=== PATIENT | male | born 1930 | race African-American/Black ===

== ENCOUNTER → 2016-12-24 | Outpatient (CLI) | payer MEDICARE, OTHER ==
[2014-07-25 14:36] VITALS: BP 147/81
[~2016-12-24] MED LIST: CHOL20003 PO; CONTRAST GIVEN MC PRN; Cholestyramine/Aspartame PO; FAMO-63 PO; FLUO10CA13 PO; Guaifenesin/Dextromethorphan PO; HEPARIN PF 500 UNIT/5 ML DISP.SYRIN. IV ONE; HYDR15SO PO; IOHEXOL 300 MG/ML 75 ML VIAL IV ONE; LEVO750T31 PO; Loperamide Hcl PO; PRAV40TA2 PO; PROC5TAB14 PO
--- NOTE | 2016-12-24 14:19 | RAD ---
Indication restage lung malignancy. Axial images through the chest were obtained. Approximately 75 cc of Omnipaque 300 was administered intravenously. Comparison is made to an examination one year ago. There are several small low-density masses in the liver with a more dominant mass in the left lobe. These are compatible with cysts and appear unchanged relative to the previous exam. A definite significant finding in the upper abdomen is not seen. There is moderately heavy coronary artery calcification. The ascending thoracic aorta is at the upper limits of normal in size, 4 cm. Significant hilar or mediastinal adenopathy is not seen. There are post therapeutic changes in the right upper lung. The volume loss in the right upper lung and associated triangular opacity is larger than on the previous exam. The parenchymal opacity now measures approximately 5.7 x 4.5 cm. Corresponding measurements previously were approximately 4.9 x 2.5. Within the center of this process is low-density mass larger than on the previous exam now measuring approximately 4 cm whereas previously it measured 1.3. Again the findings likely reflect post therapeutic changes. Recurrent malignancy in the right upper lobe is felt less likely but cannot be entirely excluded. If clinically warranted additional evaluation could be obtained with with PET/CT imaging. There is some pleural-parenchymal scarring in the right lower lobe appearing similar. There is a linear and somewhat oval parenchymal opacity in the right lower lung. This probably reflects ongoing scar but it too is slightly more conspicuous than on the previous exam. Malignancy is felt less likely but again cannot be entirely excluded. Again PET/CT scanning would be useful for additional evaluation. The left lung is clear. IMPRESSION: Probable ongoing scarring in the right upper and lower lung huang. Recurrent disease however is not entirely excluded. PET/CT imaging should be considered for additional evaluation PQRS Compliance Statement: One or more of the following individualized dose reduction techniques were utilized for this examination: 1. Automated exposure control 2. Adjustment of the mA and/or kV according to patient size 3. Use of iterative reconstruction technique
== END | disposition home or self-care (01) ==
LOC: CT 08:00
PROVIDERS: ATTEND Internal Medicine Hematology & Oncology
DX: C34.11 Malignant neoplasm of upper lobe, right bronchus or lung (principal)
CPT/HCPCS: 71260; Q9967

== ENCOUNTER → 2016-12-31 | Outpatient (CLI) | payer MEDICARE ==
[2014-07-25 14:36] VITALS: BP 147/81
[~2016-12-31] MED LIST changes: -CONTRAST GIVEN MC PRN; -HEPARIN PF 500 UNIT/5 ML DISP.SYRIN. IV ONE; -IOHEXOL 300 MG/ML 75 ML VIAL IV ONE
--- NOTE | 2016-12-31 14:41 | RAD ---
Indication history of lung and colon malignancy. Clinical recent CT imaging of the chest. PET/CT was performed. Images were obtained from the skull through the proximal thigh. CT was performed primarily for localization and attenuation purposes as opposed to primary diagnostic purposes. The blood sugar during the examination was 98. 14.5 mCi of FDG was administered. Note is made of a previous PET/CT examination August 09, 2014. Note is additionally made of a CT examination 12/24/2016 and the accompanying report. On CT the visualized brain appears unremarkable. No significant finding is seen in the neck. Known findings in the right upper lobe, referenced on the CT examination of the chest one week ago, are reproduced. A new finding in the chest is not seen. Low-density mass in the left lobe of the liver compatible with a cyst is seen. No definite significant finding in the abdomen or pelvis is seen. A sclerotic focus is noted associated with the right iliac bone. (This is not FDG avid) On PET the FDG is physiologically distributed in the visualized brain. No abnormal activity is seen in the neck. In the right upper lobe, ventrally and immediately adjacent to the mediastinum is a hypermetabolic focus with a maximum SUV of approximately 12.7 compatible with recurrent or residual disease. This is immediately adjacent to a low-density 4.3 cm mass likely reflecting a focus of necrosis. Irregular nodular opacity referenced on the CT examination is moderately FDG avid. Maximum SUV is 3.4. A focus of metastatic disease is suspect although it is conceivable that this is inflammatory in nature. There is a minimally avid FDG lymph node in the left hilum. Maximum SUV 2.6. No additional finding is seen in the chest. The abdomen is unremarkable. A focus of increased metabolic activity in the left lobe of the prostate persists and is similar to slightly larger. Maximum SUV associated with this prostatic focus is 12 where as previously maximum SUV was 7.8. 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 Parenchymal nodular focus of FDG activity in the right lower lobe may represent inflammation, scar or neoplastic disease. Nodular focus of increased FDG activity in the left prostate, more conspicuous than on the previous exam, suspect for primary malignancy Minimally FDG avid left hilar lymph node, indeterminate
== END | disposition home or self-care (01) ==
LOC: PETSC 11:20
PROVIDERS: ATTEND Internal Medicine Hematology & Oncology
DX: C34.11 Malignant neoplasm of upper lobe, right bronchus or lung (principal); R91.1 Solitary pulmonary nodule
CPT/HCPCS: 78815; A9552

== ENCOUNTER 2017-02-11 14:53 | Emergency (ER) | payer MEDICARE ==
[~2017-02-11] VITALS: Ht 180.3 cm; Wt 81.6 kg
[~2017-02-11 14:53] MED LIST changes: -CHOL20003 PO; +CHOL20009 PO
--- NOTE | 2017-02-11 15:31 | PHYS DOC ---
Past Medical History Past Medical History: Cancer, Diabetes-Type II, GERD, High Cholesterol, Other Additional Past Medical Histor: Colon CA(Part of intestines removed) Lung cancer 2011 in remission Past Surgical History: Appendectomy, Tonsillectomy, Other Additional Past Surgical Histo: Vasectomy,hemorrhoids,"all but 4in of colon removed." right alisha cath Alcohol Use: None Drug Use: None Adult General Chief Complaint Chief Complaint: OTHER COMPLAINTS HPI HPI Patient is a 86 year old male who presents with right-sided chest discomfort. Patient believes it's his Port-A-Cath is causing this. It was accessed on 08 February and flushed he's had this since 1982. He states 2 days ago which was 1 day after his flushed she started feeling a heavy sensation over his right hemithorax when he pushes around the port area. He states he pushes on it because sometimes it itches there and this is when he feels the discomfort.. He denies any shortness of breath with it. Currently he states it doesn't hurt. He states he saw his oncologist who told was not his port is causing his discomfort. Review of Systems Review of Systems Constitutional: Denies fever or chills [] Eyes: Denies change in visual acuity, redness, or eye pain [] HENT: Denies nasal congestion or sore throat [] Respiratory: Denies cough or shortness of breath [] Cardiovascular: No additional information not addressed in HPI [] GI: Denies abdominal pain, nausea, vomiting, bloody stools or diarrhea [] : Denies dysuria or hematuria [] Musculoskeletal: Denies back pain or joint pain [] Integument: Denies rash or skin lesions [] Neurologic: Denies headache, focal weakness or sensory changes [] Endocrine: Denies polyuria or polydipsia [] Current Medications Current Medications Current Medications Medications (Trade) Dose Ordered Sig/Akshat Start Time Stop Time Status Last Admin Dose Admin Heparin Sodium (Porcine) (Hep Lock Adult) 500 unit 1X ONCE 02/11/17 20:45 02/11/17 20:46 Info (Do NOT chart on this entry -- for MONITORING) 1 each PRN DAILY PRN 02/11/17 17:45 02/13/17 17:44 Iohexol (Omnipaque 300 Mg/ml) 75 ml 1X ONCE 02/11/17 17:45 02/11/17 17:46 DC 02/11/17 18:01 75 ML Sodium Chloride 1,000 ml @ 1,000 mls/hr 1X ONCE 02/11/17 18:00 02/11/17 18:59 DC 02/11/17 18:00 1,000 MLS/HR Allergies Allergies Allergies Coded Allergies Type Severity Reaction Last Updated Verified No Known Drug Allergies 07/31/13 No Physical Exam Physical Exam Constitutional: Well developed, well nourished, no acute distress, non-toxic appearance. [] HENT: Normocephalic, atraumatic, bilateral external ears normal, oropharynx moist, no oral exudates, nose normal. [] Eyes: PERRLA, EOMI, conjunctiva normal, no discharge. [] Neck: Normal range of motion, no tenderness, supple, no stridor. [] Cardiovascular:Heart rate regular rhythm, no murmur [] Lungs & Thorax: Bilateral breath sounds clear to auscultation, Port-A-Cath in right hemithorax, no tenderness or erythema around Port-A-Cath. Abdomen: Bowel sounds normal, soft, no tenderness, no masses, no pulsatile masses. [] Skin: Warm, dry, no erythema, no rash. [] Back: No tenderness, no CVA tenderness. [] Extremities: No tenderness, no cyanosis, no clubbing, ROM intact, no edema. [] Neurologic: Alert and oriented X 3, normal motor function, normal sensory function, no focal deficits noted. [] Psychologic: Affect normal, judgement normal, mood normal. [] Current Patient Data Vital Signs Vital Signs Date Time Temp Pulse Resp B/P (MAP) Pulse Ox O2 Delivery O2 Flow Rate FiO2 02/11/17 17:23 73 20 135/66 (89) 97 02/11/17 15:00 98.2 Room Air 98.2 Lab Values Laboratory Tests Test 02/11/17 15:40 02/11/17 16:20 02/11/17 19:30 White Blood Count 3.1 x10^3/uL (4.0-11.0) L Red Blood Count 3.83 x10^6/uL (4.30-5.70) L Hemoglobin 11.4 g/dL (13.0-17.5) L Hematocrit 34.9 % (39.0-53.0) L Mean Corpuscular Volume 91 fL (79-100) Mean Corpuscular Hemoglobin 30 pg (25-35) Mean Corpuscular Hemoglobin Concent 33 g/dL (31-37) Red Cell Distribution Width 16.7 % (11.5-14.5) H Platelet Count 158 x10^3/uL (140-400) Neutrophils (%) (Auto) 55 % (31-73) Lymphocytes (%) (Auto) 28 % (24-48) Monocytes (%) (Auto) 12 % (0-9) H Eosinophils (%) (Auto) 4 % (0-3) H Basophils (%) (Auto) 1 % (0-3) Neutrophils # (Auto) 1.7 x10^3uL (1.8-7.7) L Lymphocytes # (Auto) 0.9 x10^3/uL (1.0-4.8) L Monocytes # (Auto) 0.4 x10^3/uL (0.0-1.1) Eosinophils # (Auto) 0.1 x10^3/uL (0.0-0.7) Basophils # (Auto) 0.0 x10^3/uL (0.0-0.2) Sodium Level 147 mmol/L (136-145) H Potassium Level 4.0 mmol/L (3.5-5.1) Chloride Level 109 mmol/L (98-107) H Carbon Dioxide Level 31 mmol/L (21-32) Anion Gap 7 (6-14) Blood Urea Nitrogen 27 mg/dL (8-26) H Creatinine 1.2 mg/dL (0.7-1.3) Estimated GFR (Cockcroft-Gault) 69.1 Glucose Level 88 mg/dL (70-99) Calcium Level 8.4 mg/dL (8.5-10.1) L Magnesium Level 2.1 mg/dL (1.8-2.4) Total Bilirubin 0.6 mg/dL (0.2-1.0) Direct Bilirubin 0.2 mg/dL (0.0-0.2) Aspartate Amino Transferase (AST) 11 U/L (15-37) L Alanine Aminotransferase (ALT) 12 U/L (16-63) L Alkaline Phosphatase 62 U/L (46-116) Creatine Kinase 60 U/L (39-308) 61 U/L (39-308) Creatine Kinase MB (Mass) < 0.5 ng/mL (0.0-3.6) < 0.5 ng/mL (0.0-3.6) Creatine Kinase MB Relative Index % (0-4) % (0-4) Troponin I Quantitative < 0.017 ng/mL (0.000-0.055) < 0.017 ng/mL (0.000-0.055) SZ-Reg-T-Type Natriuretic Peptide 98 pg/mL (0-449) Total Protein 6.6 g/dL (6.4-8.2) Albumin 3.7 g/dL (3.4-5.0) Lipase 108 U/L (73-393) Urine Collection Type Void Urine Color Yellow Urine Clarity Clear Urine pH 6.0 Urine Specific Tad >=1.030 Urine Protein Negative mg/dL (NEG-TRACE) Urine Glucose (UA) Negative mg/dL (NEG) Urine Ketones (Stick) Negative mg/dL (NEG) Urine Blood Negative (NEG) Urine Nitrite Negative (NEG) Urine Bilirubin Negative (NEG) Urine Urobilinogen Dipstick 0.2 mg/dL (0.2 mg/dL) Urine Leukocyte Esterase Negative (NEG) Urine RBC 0 /HPF (0-2) Urine WBC 1-4 /HPF (0-4) Urine Squamous Epithelial Cells Few /LPF Urine Bacteria Few /HPF (0-FEW) Urine Mucus Marked /LPF Laboratory Tests 02/11/17 15:40 Laboratory Tests 02/11/17 15:40 EKG EKG EKG shows sinus rhythm [address] elevations, T-wave inversions noted in aVL, left axis deviation noted, QRS 114 ms, QTC 426 ms, as interpreted by me. EKG similar to one performed on number 2013 Radiology/Procedures Radiology/Procedures [facility] [address] [place] [address] IMAGING REPORT Signed PATIENT: ROSMERY DELUCA ACCOUNT: [id number] : 1930 LOCATION: ER AGE: 86 SEX: M EXAM STATUS: REG ER ORD. PHYSICIAN: LEANDRO HAMILTON MD REASON: Chest pain PROCEDURE: CHEST PA & LATERAL EXAM: Chest 2 views. HISTORY: Chest pain. COMPARISON: 07/23/2014. FINDINGS: Frontal and lateral views of the chest are obtained. A right-sided port catheter has its tip in the superior cavoatrial junction. An opacity in the right upper lobe appears chronic. Refer to prior CT. Tenting of the right hemidiaphragm is likely scarring and volume loss in the setting. A small right pleural effusion cannot be excluded. There is no pneumothorax. The heart is not enlarged. IMPRESSION: 1. Stable right upper lobe masslike opacity. Small right pleural effusion. 2. Hyperinflation is consistent with chronic obstructive pulmonary disease. DICTATED and SIGNED BY: DES MONTEZ MD DATE: 02/11/171656 CC: LEANDRO HAMILTON MD; ANSON HAYDEN MD ~ [facility] [address] [place] [address] IMAGING REPORT Signed PATIENT: ROSMERY DELUCA ACCOUNT: [id number] : 1930 LOCATION: ER AGE: 86 SEX: M EXAM STATUS: REG ER ORD. PHYSICIAN: LEANDRO HAMILTON MD REASON: right sided chest pain over portacath PROCEDURE: CT ANGIOGRAPHY CHEST CTA Chest with contrast: Clinical History: rt chest pain x 4-5 days, alisha cath, [id number] 75ml, priors sent, hx lung ca Shortness of breath. Axial helical images of the chest were obtained after the administration of 100 cc of IV Isovue-370 and timed appropriately for a pulmonary arterial study. Conventional axial reconstruction was performed in addition to coronal, sagittal and bilateral oblique MIP (maximum intensity projection). This study was ordered to detect possible pulmonary embolism. COMPARISON: May 13, 2013 There are no filling defects to suggest pulmonary embolism. The previously seen right hilar cavitary mass is no longer appreciated however the mass in the right upper lobe with volume loss and consolidation appears larger and now measures 6.2 x 4.9 cm and abuts the pleura both anteriorly and medially and laterally. There is a mass in the right middle lobe which is smaller and now measures 13 mm in diameter. There are multiple small borderline size mediastinal lymph nodes seen previously. Cysts in the liver were seen previously. The thoracic aorta appears normal. Impression: 1. No evidence of pulmonary embolism. 2. Right upper lobe mass appears larger and is likely progression of the patient's lung cancer. 3. Right middle lobe mass appears smaller. 4. Mild mediastinal lymphadenopathy appears stable. PQRS Compliance Statement: One or more of the following individualized dose reduction techniques were utilized for this examination: 1. Automated exposure control 2. Adjustment of the mA and/or kV according to patient size 3. Use of iterative reconstruction technique Electronically signed by: Estefani Burton III, MD (02/11/2017 7:01 PM) [facility] DICTATED and SIGNED BY: ESTEFANI BURTON III, MD DATE: 02/11/17 9989 CC: LEANDRO HAMILTON MD; ANSON HAYDEN MD ~ Impressions: Pain around Port-A-Cath Course & Med Decision Making Course & Med Decision Making Pertinent Labs and Imaging studies reviewed. (See chart for details) Labs shows slight dehydration, he received a liter of normal saline, CT angiogram of his chest did not show any acute abnormalities. Do not believe this is cardiac in nature as it is reproducible when he touches around his Port- A-Cath in the CT scan doesn't show any acute abnormalities. Repeat troponin also normal. He is being discharged home at this time and to follow-up with his primary care physician. Return precautions given his agreeable to plan is being discharged in stable condition at this time. Dragon Disclaimer Dragon Disclaimer This electronic medical record was generated, in whole or in part, using a voice recognition dictation system. Departure Departure Impression: Primary Impression: Chest pain of uncertain etiology Disposition: 01 HOME, SELF-CARE Condition: STABLE Referrals: ANSON HAYDEN MD (PCP) Patient Instructions: Chest Pain (Nonspecific) Additional Instructions: Your EKG, CT scan of your chest and blood work did not show any acute abnormality's. Your being discharged home. Your pain returns, he has shortness of breath, fevers or other concerns please return back to ER. You should follow- up with her primary care physician within the next few days. LEANDRO HAMILTON MD Feb 11, 2017 15:31
--- NOTE | 2017-02-11 15:41 | EKG ---
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
[2017-02-11 15:58] LABS: BASO % 1 % (0-3); EOS % 4 % (0-3); HEMATOCRIT 34.9 % (39.0-53.0); HEMOGLOBIN 11.4 g/dL (13.0-17.5); LYMPH # 0.9 x10^3/uL (1.0-4.8); LYMPH % 28 % (24-48); MEAN CORPUSCULAR HEMOGLOBIN 30 pg (25-35); MEAN CORPUSCULAR HGB CONC 33 g/dL (31-37); MEAN CORPUSCULAR VOLUME 91 fL (79-100); MONO % 12 % (0-9); NEUT % 55 % (31-73); PLATELET COUNT 158 x10^3/uL (140-400); RED BLOOD COUNT 3.83 x10^6/uL (4.30-5.70); RED CELL DISTRIBUTION WIDTH 16.7 % (11.5-14.5); WHITE BLOOD COUNT 3.1 x10^3/uL (4.0-11.0)
[2017-02-11 16:09] LABS: CALCIUM 8.4 mg/dL (8.5-10.1); CREATININE 1.2 mg/dL (0.7-1.3); GFR 69.1
[2017-02-11 16:17] LABS: ALBUMIN 3.7 g/dL (3.4-5.0); DIRECT BILIRUBIN 0.2 mg/dL (0.0-0.2); MAGNESIUM 2.1 mg/dL (1.8-2.4); TOTAL BILIRUBIN 0.6 mg/dL (0.2-1.0); TOTAL PROTEIN 6.6 g/dL (6.4-8.2)
[2017-02-11 16:25] LABS: CKMB MASS < 0.5 ng/mL (0.0-3.6); CREATINE KINASE 60 U/L (39-308)
[2017-02-11 16:32] LABS: BILIRUBIN,URINE NEGATIVE (NEG); GLUCOSE,URINE NEGATIVE (NEG); NITRITE,URINE NEGATIVE (NEG); PROTEIN,URINE NEGATIVE (NEG-TRACE); UROBILINOGEN,URINE 0.2 mg/dL (0.2 mg/dL)
[2017-02-11 16:40] LABS: RBC,URINE 0 /HPF (0-2)
[2017-02-11 16:41] LABS: BACTERIA,URINE FEW /HPF (0-FEW); SQUAMOUS EPITHELIAL CELL,UR FEW /LPF
--- NOTE | 2017-02-11 17:01 | RAD ---
EXAM: Chest 2 views. HISTORY: Chest pain. COMPARISON: 07/23/2014. FINDINGS: Frontal and lateral views of the chest are obtained. A right-sided port catheter has its tip in the superior cavoatrial junction. An opacity in the right upper lobe appears chronic. Refer to prior CT. Tenting of the right hemidiaphragm is likely scarring and volume loss in the setting. A small right pleural effusion cannot be excluded. There is no pneumothorax. The heart is not enlarged. IMPRESSION: 1. Stable right upper lobe masslike opacity. Small right pleural effusion. 2. Hyperinflation is consistent with chronic obstructive pulmonary disease.
[2017-02-11] MEDS ORDERED: CONTRAST GIVEN MC PRN (17:45)
[2017-02-11] MEDS ORDERED: IOHEXOL 300 MG/ML 75 ML VIAL IV ONE (17:45)
[2017-02-11] MEDS ORDERED: IV NORMAL SALINE 1000ML BAG 1,000 ML IV ONE (18:00)
--- NOTE | 2017-02-11 19:04 | RAD ---
CTA Chest with contrast: Clinical History: rt chest pain x 4-5 days, alisha cath, [id number] 75ml, priors sent, hx lung ca Shortness of breath. Axial helical images of the chest were obtained after the administration of 100 cc of IV Isovue-370 and timed appropriately for a pulmonary arterial study. Conventional axial reconstruction was performed in addition to coronal, sagittal and bilateral oblique MIP (maximum intensity projection). This study was ordered to detect possible pulmonary embolism. COMPARISON: May 13, 2013 There are no filling defects to suggest pulmonary embolism. The previously seen right hilar cavitary mass is no longer appreciated however the mass in the right upper lobe with volume loss and consolidation appears larger and now measures 6.2 x 4.9 cm and abuts the pleura both anteriorly and medially and laterally. There is a mass in the right middle lobe which is smaller and now measures 13 mm in diameter. There are multiple small borderline size mediastinal lymph nodes seen previously. Cysts in the liver were seen previously. The thoracic aorta appears normal. Impression: 1. No evidence of pulmonary embolism. 2. Right upper lobe mass appears larger and is likely progression of the patient's lung cancer. 3. Right middle lobe mass appears smaller. 4. Mild mediastinal lymphadenopathy appears stable. PQRS Compliance Statement: One or more of the following individualized dose reduction techniques were utilized for this examination: 1. Automated exposure control 2. Adjustment of the mA and/or kV according to patient size 3. Use of iterative reconstruction technique Electronically signed by: Chilo Romo III, MD (02/11/2017 7:01 PM) [facility]
[2017-02-11 20:00] LABS: CKMB MASS < 0.5 ng/mL (0.0-3.6); CREATINE KINASE 61 U/L (39-308)
[2017-02-11 20:16] VITALS: BP 188/84
[2017-02-11] MEDS ORDERED: HEPARIN PF 500 UNIT/5 ML DISP.SYRIN. IV ONE (20:45)
== END 2017-02-11 20:25 | disposition home or self-care (01) ==
LOC: ER 14:53
DX: R07.89 Other chest pain (principal); E86.0 Dehydration; E11.9 Type 2 diabetes mellitus without complications; K21.9 Gastro-esophageal reflux disease without esophagitis; E78.00 Pure hypercholesterolemia, unspecified; Z90.49 Acquired absence of other specified parts of digestive tract; Z98.52 Vasectomy status
CPT/HCPCS: 36415; 71020; 71275; 80048; 80076; 81001; 82553; 83690; 83735; 83880; 84484; 85027; 93005; 96361; 96374; 99285; J7030; Q9967

== ENCOUNTER 2017-03-30 14:05 | Emergency (ER) | payer MEDICARE ==
[~2017-03-30] VITALS: Ht 180.3 cm; Wt 81.6 kg
[2017-03-30] MEDS ORDERED: LIDOCAINE 1%/EPI 1:100,000 20 ML VIAL. INJ ONE (16:30)
[2017-03-30] MEDS ORDERED: SULF1TAB23 PO (16:33)
[2017-03-30] MEDS ORDERED: HYDR-971 PO (16:33)
--- NOTE | 2017-03-30 16:33 | PHYS DOC ---
Past Medical History Past Medical History: Cancer, Diabetes-Type II, GERD, High Cholesterol, Hypertension, Other Additional Past Medical Histor: Colon CA(Part of intestines removed) Lung cancer 2011 in remission Past Surgical History: Other Additional Past Surgical Histo: hemorrhoids,"all but 4in of colon removed." right alisha cath Alcohol Use: Sober Drug Use: None Adult General Chief Complaint Chief Complaint: ABSCESS HPI HPI Patient is a 86 year old male presenting to ED for evaluation of left shoulder abscess that started 2 days ago and is now spontaneously draining. He says it is painful to palpation. No fevers chills nausea vomiting or other systemic symptoms. Review of Systems Review of Systems Constitutional: Denies fever or chills [] Integument: + abscess Current Medications Current Medications Current Medications Medications (Trade) Dose Ordered Sig/Akshat Start Time Stop Time Status Last Admin Dose Admin Lidocaine/ Epinephrine (Xylocaine 1%-Epi 1:100,000) 20 ml 1X ONCE 03/30/17 16:30 03/30/17 16:31 DC 03/30/17 16:48 20 ML Allergies Allergies Allergies Coded Allergies Type Severity Reaction Last Updated Verified No Known Drug Allergies 07/31/13 No Physical Exam Physical Exam Constitutional: Well developed, well nourished, no acute distress, non-toxic appearance. [] Skin: Left scapula with approximate 4 x 5 cm abscess that is draining spontaneously and there is some surrounding erythema. Current Patient Data Vital Signs Vital Signs Date Time Temp Pulse Resp B/P (MAP) Pulse Ox O2 Delivery O2 Flow Rate FiO2 03/30/17 15:00 98.0 86 18 158/77 (104) 97 Room Air 98.0 EKG EKG [] Radiology/Procedures Radiology/Procedures Indication: abscess Procedure: The patient was positioned appropriately. Approximate 5 mL of 1% lidocaine with epinephrine injected into and around the abscess site. An incision was then made over the apex of the lesion and large amount of purulent material was expressed. The drainage cavity was irrigated and packed with sterile gauze. The patients tetanus status updated as needed. The patient tolerated the procedure well. Complications: none.[] Course & Med Decision Making Course & Med Decision Making Abscess that is slightly open went ahead and extended the incision for better drainage. We will discharged on [place] Bactrim and have follow with us or his PCP in 2 days and come back sooner with worsening pain fevers or other general concerns. Dragon Disclaimer Dragon Disclaimer This electronic medical record was generated, in whole or in part, using a voice recognition dictation system. Departure Departure Impression: Primary Impression: Abscess of scapular region Disposition: 01 HOME, SELF-CARE Condition: GOOD Referrals: ANSON HAYDEN MD (PCP) Patient Instructions: Abscess, Care After Scripts Hydrocodone/Apap 5-325 (NORCO 5-325 TABLET) 1 Each Tablet 1 TAB PO PRN Q6HRS Y for PAIN, #10 TAB 0 Refills Prov: ALISA WRAY DO 03/30/17 Sulfamethoxazole/Trimethoprim (BACTRIM 400-80 MG TABLET) 1 Each Tablet 1 TAB PO BID, #14 TAB Prov: ALISA WRAY DO 03/30/17 ALISA WRAY DO Mar 30, 2017 16:33
[2017-03-30 17:37] VITALS: BP 146/70
== END 2017-03-30 17:41 | disposition home or self-care (01) ==
LOC: ER 14:05
DX: L02.414 Cutaneous abscess of left upper limb (principal); E11.9 Type 2 diabetes mellitus without complications; I10 Essential (primary) hypertension; K21.9 Gastro-esophageal reflux disease without esophagitis; E78.00 Pure hypercholesterolemia, unspecified
CPT/HCPCS: 10060; 99283; J3490

== ENCOUNTER 2017-04-01 13:20 | Emergency (ER) | payer MEDICARE ==
[~2017-04-01] VITALS: Ht 180.3 cm; Wt 81.6 kg
[~2017-04-01 13:20] MED LIST changes: +HYDR-971 PO; +SULF1TAB23 PO
[2017-04-01 13:28] VITALS: BP 145/68
--- NOTE | 2017-04-01 14:15 | PHYS DOC ---
Past Medical History Past Medical History: Cancer, Diabetes-Type II, GERD, High Cholesterol, Hypertension, Other Additional Past Medical Histor: Colon CA(Part of intestines removed) Lung cancer 2011 in remission Past Surgical History: Other Additional Past Surgical Histo: hemorrhoids,"all but 4in of colon removed." right alisha cath Alcohol Use: Sober Drug Use: None Adult General Chief Complaint Chief Complaint: WOUND CHECK HPI HPI 86-year-old male presenting to the emergency department with a wound in his left shoulder. He was seen previously for an abscess which was drained and packing was placed. He presents today for wound evaluation. Onset 3 days. Location left shoulder. Duration. He denies any new rashes fevers at home. Review of systems is negative for fevers chills abdominal pain chest pain. All other review of systems is negative unless otherwise noted in history of present illness. ED course: 78-year-old male presenting to the emergency department for a wound recheck. On examination the wound there is no evidence of cellulitis associated. We removed the packing and changed the patient's gauze. The patient was in discharged home to follow up with PCP in the next 4-5 days. The patient was then discharged home in stable condition to follow up with their primary care physician over the next 2-3 days. They were to return if their symptoms worsened or if they were concerned for any reason. [id number] discharge instructions and return precautions were given. Patient's questions were answered to their satisfaction. Patient is comfortable plan. Review of Systems Review of Systems SEE ABOVE. Allergies Allergies Allergies Coded Allergies Type Severity Reaction Last Updated Verified No Known Drug Allergies 04/01/17 No Physical Exam Physical Exam SEE ABOVE Constitutional: Well developed, well nourished, no acute distress, non-toxic appearance. [] HENT: Normocephalic, atraumatic, bilateral external ears normal, oropharynx moist, no oral exudates, nose normal. [] Eyes: PERRLA, EOMI, conjunctiva normal, no discharge. [] Neck: Normal range of motion, no tenderness, supple, no stridor. [] Cardiovascular:Heart rate regular rhythm, no murmur [] Lungs & Thorax: Bilateral breath sounds clear to auscultation [] Abdomen: Bowel sounds normal, soft, no tenderness, no masses, no pulsatile masses. [] Skin: SEE ABOVE Back: No tenderness, no CVA tenderness. [] Extremities: No tenderness, no cyanosis, no clubbing, ROM intact, no edema. [] Neurologic: Alert and oriented X 3, normal motor function, normal sensory function, no focal deficits noted. [] Psychologic: Affect normal, judgement normal, mood normal. [] Current Patient Data Vital Signs Vital Signs Date Time Temp Pulse Resp B/P (MAP) Pulse Ox O2 Delivery O2 Flow Rate FiO2 04/01/17 13:28 97.9 52 18 97 Room Air 97.9 EKG EKG [] Radiology/Procedures Radiology/Procedures [] Course & Med Decision Making Course & Med Decision Making Pertinent Labs and Imaging studies reviewed. (See chart for details) [] Dragon Disclaimer Dragon Disclaimer This electronic medical record was generated, in whole or in part, using a voice recognition dictation system. Departure Departure Impression: Primary Impression: Visit for wound check Disposition: HOME, SELF-CARE Condition: STABLE Referrals: ANSON HAYDEN MD (PCP) Patient Instructions: Wound Check Additional Instructions: Thank you for allowing us to participate in your care today. Followup with your primary care physician in 3 days if your symptoms do not improve. Call your Primary Doctor tomorrow and inform them of your visit today. If you do not have a primary care provider you can ask for a list of our primary care providers. Return to the emergency department you have any new or concerning findings. This should be evaluated by the primary care physician and any necessary consulting services for continued management within a few days after discharge. Return to emergency room if you have any new or concerning symptoms including but not limited to fever, chills, nausea, vomiting, intractable pain, any new rashes, chest pain, shortness of air, uncontrolled bleeding, difficulty breathing, and/or vision loss. RAJWINDER FLORES MD Apr 01, 2017 14:15
== END 2017-04-01 14:30 | disposition home or self-care (01) ==
LOC: ER 13:20
DX: Z48.01 Encounter for change or removal of surgical wound dressing (principal); E11.9 Type 2 diabetes mellitus without complications; I10 Essential (primary) hypertension; K21.9 Gastro-esophageal reflux disease without esophagitis
CPT/HCPCS: 99283

== ENCOUNTER → 2017-04-05 | Outpatient (CLI) | payer MEDICARE ==
[2017-04-01 13:28] VITALS: BP 145/68
[~2017-04-05] MED LIST changes: +CONTRAST GIVEN MC PRN; +HEPARIN PF 500 UNIT/5 ML DISP.SYRIN. IV ONE; +IOHEXOL 300 MG/ML 75 ML VIAL IV ONE
--- NOTE | 2017-04-05 12:24 | RAD ---
Lung malignancy. Axial images through the chest were obtained. IV contrast, approximately 75 cc of Omnipaque 300 was administered. Comparison is made to a previous examination 02/11/2017. There are several low-density masses in the liver the largest measuring approximately 2.7 cm compatible with cysts. These findings are similar to the previous exam. An acute finding in the upper abdomen or evidence of metastatic disease is not seen. There is coronary artery calcification. The thoracic aorta appears unremarkable. No definite pathologic mediastinal or hilar adenopathy is seen. There is a small right pleural effusion representing a new finding compared to the prior study. A low-density mass in the right upper lobe appears similar to the previous exam. A mass in the right lower lobe is seen appearing similar. A new parenchymal finding in the chest is not seen. IMPRESSION: Small right pleural effusion representing a new finding relative to the previous exam. Low-density mass in the right upper lobe appears similar. Parenchymal mass in the right lower lobe is also similar. PQRS Compliance Statement: One or more of the following individualized dose reduction techniques were utilized for this examination: 1. Automated exposure control 2. Adjustment of the mA and/or kV according to patient size 3. Use of iterative reconstruction technique
== END | disposition home or self-care (01) ==
LOC: CT 11:01
PROVIDERS: ATTEND Internal Medicine Hematology & Oncology
DX: C34.11 Malignant neoplasm of upper lobe, right bronchus or lung (principal); J90 Pleural effusion, not elsewhere classified
CPT/HCPCS: 71260

== ENCOUNTER → 2017-07-30 | Outpatient (CLI) | payer MEDICARE ==
[~2017-07-30] MED LIST changes: -CHOL20009 PO; +CONTRAST GIVEN MC; -CONTRAST GIVEN MC PRN; -Cholestyramine/Aspartame PO; -FAMO-63 PO; -FLUO10CA13 PO; -Guaifenesin/Dextromethorphan PO; +HEPARIN PF 500 UNIT/5 ML DISP.SYRIN. IV; -HEPARIN PF 500 UNIT/5 ML DISP.SYRIN. IV ONE; -HYDR-971 PO; -HYDR15SO PO; +IOHEXOL 300 MG/ML 100ML VIAL. IV; -IOHEXOL 300 MG/ML 75 ML VIAL IV ONE; -LEVO750T31 PO; -Loperamide Hcl PO; -PRAV40TA2 PO; -PROC5TAB14 PO; -SULF1TAB23 PO
== END | disposition home or self-care (01) ==
LOC: CT 08:37
DX: C34.11 Malignant neoplasm of upper lobe, right bronchus or lung (principal); J47.9 Bronchiectasis, uncomplicated; J90 Pleural effusion, not elsewhere classified; J98.4 Other disorders of lung; J98.11 Atelectasis
CPT/HCPCS: 71260

== ENCOUNTER → 2018-02-04 | Outpatient (CLI) | payer MEDICARE ==
[~2018-02-04] MED LIST changes: -CONTRAST GIVEN MC; +CONTRAST GIVEN. MC
== END | disposition home or self-care (01) ==
LOC: CT 09:14
DX: C34.11 Malignant neoplasm of upper lobe, right bronchus or lung (principal); J47.9 Bronchiectasis, uncomplicated; J98.11 Atelectasis; J90 Pleural effusion, not elsewhere classified
CPT/HCPCS: 71260; Q9967

== ENCOUNTER 2018-03-08 07:44 | Emergency (ER) | payer MEDICARE ==
[~2018-03-08] VITALS: Ht 180.3 cm; Wt 77.1 kg
[~2018-03-08 07:44] MED LIST changes: +ALBU2.5V14 NEB; +ASPI325T8 PO; +CHOL20009 PO; -CONTRAST GIVEN. MC; +Cholestyramine/Aspartame PO; +FAMO-63 PO; +FLUO10CA13 PO; +Guaifenesin/Dextromethorphan PO; -HEPARIN PF 500 UNIT/5 ML DISP.SYRIN. IV; +HYDR-971 PO; +HYDR15SO PO; -IOHEXOL 300 MG/ML 100ML VIAL. IV; +LEVO750T31 PO; +Loperamide Hcl PO; +PRAV40TA2 PO; +PROC5TAB14 PO; +SULF1TAB23 PO
--- NOTE | 2018-03-08 08:16 | PHYS DOC ---
Past Medical History Past Medical History: Cancer, Diabetes-Type II, GERD, High Cholesterol, Hypertension, Other Additional Past Medical Histor: Colon CA(Part of intestines removed) Lung cancer 2011 in remission Past Surgical History: Other Additional Past Surgical Histo: hemorrhoids,"all but 4in of colon removed." right alisha cath Alcohol Use: Sober Drug Use: None Adult General Chief Complaint Chief Complaint: BLOOD IN URINE HPI HPI Patient is an 87-year-old male who presents to the emergency department for evaluation of painless hematuria. He states that after he urinated yesterday evening, at the end of urination he noticed some blood coming out of his penis. He states the same thing happened this morning. He states he has had some urinary frequency, but denies any dysuria. He is not having any pain at all. He denies any pelvic or genital/perineal pain, although he does have a history of prostatism in the past. He has not had any abdominal pain, flank or back pain, fevers, or chills. He has not had any nausea or vomiting. He does not take any anticoagulants. There are no alleviating, or exacerbating factors to his symptoms. The patient denies having any rectal bleeding or blood in his stools. Review of Systems Review of Systems Constitutional: Denies fever or chills [] Eyes: Denies change in visual acuity, redness, or eye pain [] HENT: Denies nasal congestion or sore throat [] Respiratory: Denies cough or shortness of breath [] Cardiovascular: The patient denies any shortness of breath, chest pain, palpitations, or orthopnea [] GI: Denies abdominal pain, nausea, vomiting, bloody stools or diarrhea [] : Denies dysuria. Does report hematuria [] Musculoskeletal: Denies back pain or joint pain [] Integument: Denies rash or skin lesions [] Neurologic: Denies headache, focal weakness or sensory changes [] Endocrine: Denies polyuria or polydipsia [] All other systems were reviewed and found to be within normal limits, except as documented in this note. Allergies Allergies Allergies Coded Allergies Type Severity Reaction Last Updated Verified No Known Drug Allergies 04/01/17 No Physical Exam Physical Exam PHYSICAL EXAM: CONSTITUTIONAL: Well developed, well nourished HEAD: normocephalic, atraumatic EENT: PERRL, EOMI. Conjunctivae normal color, sclerae non-icteric; moist mucous membranes. NECK: Supple, non-tender; no meningismus. LUNGS: Lungs CTA, breathing even and unlabored. Normal air movement. HEART: Regular rate and rhythm, no murmur CHEST: No deformity; non-tender ABDOMEN: The abdomen is soft, and non-tender, no masses or bruits. EXTREM: Normal ROM; no deformity, no calf tenderness. Normal pulses palpable in all extremities. There is no pedal edema. SKIN: No rash; no diaphoresis NEURO: Alert; normal speech and cognition; CN's grossly intact; strength grossly intact without focal deficit. BACK: No CVA TTP. GENITOURINARY: Normal external genitalia. The patient is noncircumcised. There is no urethral discharge or blood at the urethral meatus. Current Patient Data Vital Signs Vital Signs Date Time Temp Pulse Resp B/P (MAP) Pulse Ox O2 Delivery O2 Flow Rate FiO2 03/08/18 11:01 79 20 164/76 (105) 98 Room Air 03/08/18 08:10 98.3 98.3 Lab Values Laboratory Tests Test 03/08/18 08:50 03/08/18 10:00 03/08/18 10:15 White Blood Count 3.4 x10^3/uL (4.0-11.0) L Red Blood Count 3.87 x10^6/uL (4.30-5.70) L Hemoglobin 11.2 g/dL (13.0-17.5) L Hematocrit 34.2 % (39.0-53.0) L Mean Corpuscular Volume 89 fL (79-100) Mean Corpuscular Hemoglobin 29 pg (25-35) Mean Corpuscular Hemoglobin Concent 33 g/dL (31-37) Red Cell Distribution Width 17.0 % (11.5-14.5) H Platelet Count 149 x10^3/uL (140-400) Neutrophils (%) (Auto) 58 % (31-73) Lymphocytes (%) (Auto) 25 % (24-48) Monocytes (%) (Auto) 10 % (0-9) H Eosinophils (%) (Auto) 5 % (0-3) H Basophils (%) (Auto) 2 % (0-3) Neutrophils # (Auto) 2.0 x10^3uL (1.8-7.7) Lymphocytes # (Auto) 0.8 x10^3/uL (1.0-4.8) L Monocytes # (Auto) 0.3 x10^3/uL (0.0-1.1) Eosinophils # (Auto) 0.2 x10^3/uL (0.0-0.7) Basophils # (Auto) 0.1 x10^3/uL (0.0-0.2) Sodium Level 140 mmol/L (136-145) Potassium Level 4.3 mmol/L (3.5-5.1) Chloride Level 105 mmol/L (98-107) Carbon Dioxide Level 26 mmol/L (21-32) Anion Gap 9 (6-14) Blood Urea Nitrogen 20 mg/dL (8-26) Creatinine 1.3 mg/dL (0.7-1.3) Estimated GFR (Cockcroft-Gault) 62.9 BUN/Creatinine Ratio 15 (6-20) Glucose Level 101 mg/dL (70-99) H Calcium Level 8.8 mg/dL (8.5-10.1) Total Bilirubin 0.5 mg/dL (0.2-1.0) Aspartate Amino Transferase (AST) 13 U/L (15-37) L Alanine Aminotransferase (ALT) 12 U/L (16-63) L Alkaline Phosphatase 70 U/L (46-116) Total Protein 6.7 g/dL (6.4-8.2) Albumin 3.5 g/dL (3.4-5.0) Albumin/Globulin Ratio 1.1 (1.0-1.7) Urine Color Yellow Urine Clarity Clear Urine pH 6.5 Urine Specific [place] 1.015 Urine Protein Negative mg/dL (NEG-TRACE) Urine Glucose (UA) Negative mg/dL (NEG) Urine Ketones (Stick) Negative mg/dL (NEG) Urine Blood Negative (NEG) Urine Nitrite Negative (NEG) Urine Bilirubin Negative (NEG) Urine Urobilinogen Dipstick 0.2 mg/dL (0.2 mg/dL) Urine Leukocyte Esterase Negative (NEG) Urine RBC Occ /HPF (0-2) Urine WBC Occ /HPF (0-4) Urine Squamous Epithelial Cells Few /LPF Urine Bacteria Many /HPF (0-FEW) Urine Mucus Slight /LPF Prothrombin Time 13.9 SEC (11.7-14.0) Prothrombin Time INR 1.1 (0.8-1.1) PTT 27 SEC (24-38) Laboratory Tests 03/08/18 08:50 Laboratory Tests 03/08/18 08:50 EKG EKG [] Radiology/Procedures Radiology/Procedures [PROCEDURE: CT ABDOMEN PELVIS WO CONTRAST CT scan of the abdomen and pelvis without contrast 03/08/2018 CLINICAL HISTORY: Hematuria for one day. TECHNIQUE: Unenhanced, contiguous, 2 mm axial sections were obtained through the abdomen and pelvis. One or more of the following individualized dose reduction techniques were utilized for this study: 1. Automated exposure control. 2. Adjustment of the mA and/or kV according to patient size. 3. Use of iterative reconstruction technique. FINDINGS: Comparison study is dated 07/24/2014. Images through the lung bases demonstrate a small right pleural effusion. Minimal dependent subsegmental atelectasis is seen involving both lower lobes. A 3 cm low-attenuation lesion is involving the left lobe liver. A 1 cm low-attenuation lesion is seen within the left lobe liver posterior to this. These are consistent with hepatic cysts. They are unchanged. The spleen, pancreas and adrenal glands are within normal limits. No renal or ureteral calculus is seen. There is no evidence of obstruction of either collecting system. A 1 cm rounded low-attenuation lesion is seen involving the lower pole of the left kidney. This likely represents a cyst. It is unchanged. Atherosclerotic calcification of the abdominal aorta and its branches is seen. The abdominal aorta tapers normally. The gallbladder is slightly contracted. No free fluid or free air is seen within the abdomen. There is no evidence of bowel obstruction. Images through the pelvis demonstrate the urinary bladder distended with urine. An anastomosis is seen involving the sigmoid colon within the pelvis. No distal ureteral calculus is seen. Calcifications are seen within the pelvis consistent with phleboliths. No free fluid is seen. No adnexal mass is noted. Mild S-shaped curvature of the thoracolumbar spine is seen. Degenerative changes are seen involving the lower thoracic and throughout the lumbar spine and both hips. IMPRESSION: No acute abnormality is seen. ] Course & Med Decision Making Course & Med Decision Making Pertinent Labs and Imaging studies reviewed. (See chart for details) [11:30 AM:Patient remains stable. I discussed test results, the need for close follow-up, and return precautions.] Juan Francisco Disclaimer Dragon Disclaimer This electronic medical record was generated, in whole or in part, using a voice recognition dictation system. Departure Departure Impression: Primary Impression: Hematuria Disposition: 01 HOME, SELF-CARE Condition: STABLE Referrals: ANSON HAYDEN MD (PCP) LULU CLARKE MD Patient Instructions: Hematuria, Adult ALISA WILD MD Mar 08, 2018 08:16
[2018-03-08 08:59] LABS: BASO # 0.1 x10^3/uL (0.0-0.2); BASO % 2 % (0-3); EOS # 0.2 x10^3/uL (0.0-0.7); EOS % 5 % (0-3); HEMATOCRIT 34.2 % (39.0-53.0); HEMOGLOBIN 11.2 g/dL (13.0-17.5); LYMPH # 0.8 x10^3/uL (1.0-4.8); LYMPH % 25 % (24-48); MEAN CORPUSCULAR HEMOGLOBIN 29 pg (25-35); MEAN CORPUSCULAR HGB CONC 33 g/dL (31-37); MEAN CORPUSCULAR VOLUME 89 fL (79-100); MONO # 0.3 x10^3/uL (0.0-1.1); MONO % 10 % (0-9); NEUT % 58 % (31-73); PLATELET COUNT 149 x10^3/uL (140-400); RED BLOOD COUNT 3.87 x10^6/uL (4.30-5.70); WHITE BLOOD COUNT 3.4 x10^3/uL (4.0-11.0)
[2018-03-08 09:16] LABS: CALCIUM 8.8 mg/dL (8.5-10.1); CREATININE 1.3 mg/dL (0.7-1.3); GFR 62.9; POTASSIUM 4.3 mmol/L (3.5-5.1)
[2018-03-08 09:23] LABS: ALBUMIN 3.5 g/dL (3.4-5.0); ALBUMIN/GLOBULIN RATIO 1.1 (1.0-1.7); TOTAL BILIRUBIN 0.5 mg/dL (0.2-1.0); TOTAL PROTEIN 6.7 g/dL (6.4-8.2)
--- NOTE | 2018-03-08 10:21 | RAD ---
CT scan of the abdomen and pelvis without contrast 03/08/2018 CLINICAL HISTORY: Hematuria for one day. TECHNIQUE: Unenhanced, contiguous, 2 mm axial sections were obtained through the abdomen and pelvis. One or more of the following individualized dose reduction techniques were utilized for this study: 1. Automated exposure control. 2. Adjustment of the mA and/or kV according to patient size. 3. Use of iterative reconstruction technique. FINDINGS: Comparison study is dated 07/24/2014. Images through the lung bases demonstrate a small right pleural effusion. Minimal dependent subsegmental atelectasis is seen involving both lower lobes. A 3 cm low-attenuation lesion is involving the left lobe liver. A 1 cm low-attenuation lesion is seen within the left lobe liver posterior to this. These are consistent with hepatic cysts. They are unchanged. The spleen, pancreas and adrenal glands are within normal limits. No renal or ureteral calculus is seen. There is no evidence of obstruction of either collecting system. A 1 cm rounded low-attenuation lesion is seen involving the lower pole of the left kidney. This likely represents a cyst. It is unchanged. Atherosclerotic calcification of the abdominal aorta and its branches is seen. The abdominal aorta tapers normally. The gallbladder is slightly contracted. No free fluid or free air is seen within the abdomen. There is no evidence of bowel obstruction. Images through the pelvis demonstrate the urinary bladder distended with urine. An anastomosis is seen involving the sigmoid colon within the pelvis. No distal ureteral calculus is seen. Calcifications are seen within the pelvis consistent with phleboliths. No free fluid is seen. No adnexal mass is noted. Mild S-shaped curvature of the thoracolumbar spine is seen. Degenerative changes are seen involving the lower thoracic and throughout the lumbar spine and both hips. IMPRESSION: No acute abnormality is seen. Electronically signed by: Jason Berger MD (03/08/2018 10:17 AM) [id number]
[2018-03-08 10:39] LABS: PROTHROMBIN TIME PATIENT 13.9 SEC (11.7-14.0)
[2018-03-08 11:01] VITALS: BP 164/76
[2018-03-08 11:18] LABS: BACTERIA,URINE MANY /HPF (0-FEW); BILIRUBIN,URINE NEGATIVE (NEG); CLARITY,URINE CLEAR; COLOR,URINE YELLOW; NITRITE,URINE NEGATIVE (NEG); PH,URINE 6.5; PROTEIN,URINE NEGATIVE (NEG-TRACE); RBC,URINE OCC /HPF (0-2); SQUAMOUS EPITHELIAL CELL,UR FEW /LPF; UROBILINOGEN,URINE 0.2 mg/dL (0.2 mg/dL); WBC,URINE OCC /HPF (0-4)
== END 2018-03-08 12:00 | disposition home or self-care (01) ==
LOC: ER 07:44
DX: R31.9 Hematuria, unspecified (principal); E11.9 Type 2 diabetes mellitus without complications; K21.9 Gastro-esophageal reflux disease without esophagitis; E78.00 Pure hypercholesterolemia, unspecified; I10 Essential (primary) hypertension
CPT/HCPCS: 36415; 74176; 80053; 81001; 85025; 85610; 85730; 87086; 99285-25

== ENCOUNTER 2018-04-22 13:10 | Emergency (ER) | payer MEDICARE ==
[~2018-04-22] VITALS: Ht 180.3 cm; Wt 77.1 kg
[2018-04-22 15:28] LABS: BILIRUBIN,URINE NEGATIVE (NEG); CLARITY,URINE CLEAR; COLOR,URINE YELLOW; NITRITE,URINE NEGATIVE (NEG); PH,URINE 6.5; PROTEIN,URINE NEGATIVE (NEG-TRACE); UROBILINOGEN,URINE 0.2 mg/dL (0.2 mg/dL)
[2018-04-22 15:47] LABS: BACTERIA,URINE 0 /HPF (0-FEW); RBC,URINE 0 /HPF (0-2); WBC,URINE 0 /HPF (0-4)
--- NOTE | 2018-04-22 16:20 | PHYS DOC ---
Past Medical History Past Medical History: Cancer, Diabetes-Type II, GERD, High Cholesterol, Hypertension, Other Additional Past Medical Histor: Colon CA(Part of intestines removed) Lung cancer 2011 in remission Past Surgical History: Other Additional Past Surgical Histo: hemorrhoids,"all but 4in of colon removed." right alisha cath Alcohol Use: Sober Drug Use: None Adult General Chief Complaint Chief Complaint: URINARY RETENTION HPI HPI Patient is a 87 year old AA male with history of colon cancer presents with urinary frequency for the past one week. Patient was evaluated by his PCP and started on an unknown medication. Patient is not clear . Treatment for urinary tract infection, possibly related urinary frequency or bladder spasm. Patient did complete medication and states his symptoms have continued with frequent urination throughout the day time. Denies fever, chills , nausea, vomiting, sweats. No abdominal pain or any other acute pain complaint. [] Review of Systems Review of Systems Review symptoms as per history of present illness. All other systems were reviewed and found to be within normal limits, except as documented in this note. Allergies Allergies Allergies Coded Allergies Type Severity Reaction Last Updated Verified No Known Drug Allergies 04/01/17 No Physical Exam Physical Exam Constitutional: Well developed, well nourished, no acute distress, non-toxic appearance. [] HENT: Normocephalic, atraumatic, bilateral external ears normal, oropharynx moist, no oral exudates, nose normal. [] Eyes: PERRLA, EOMI, conjunctiva normal, no discharge. [] Neck: Normal range of motion, no tendernesr. [] Cardiovascular:Heart rate regular rhythm, no murmur [] Lungs & Thorax: Bilateral breath sounds clear to auscultation [] Abdomen: Bowel sounds normal, soft, no tenderness, no pulsatile or palpable masses. [] Skin: Warm, dry, no erythema, no rash. [] Back: No tenderness, no CVA tenderness. [] Extremities: No tenderness. [] Neurologic: Alert and oriented X 3, normal motor function, normal sensory function, no focal deficits noted. [] Psychologic: Affect normal, judgement normal, mood normal. [] Current Patient Data Vital Signs Vital Signs Date Time Temp Pulse Resp B/P (MAP) Pulse Ox O2 Delivery O2 Flow Rate FiO2 04/22/18 14:31 98.1 92 20 98 98.1 Lab Values Laboratory Tests Test 04/22/18 15:03 Urine Collection Type Unknown Urine Color Yellow Urine Clarity Clear Urine pH 6.5 Urine Specific [place] 1.015 Urine Protein Negative mg/dL (NEG-TRACE) Urine Glucose (UA) Negative mg/dL (NEG) Urine Ketones (Stick) Negative mg/dL (NEG) Urine Blood Negative (NEG) Urine Nitrite Negative (NEG) Urine Bilirubin Negative (NEG) Urine Urobilinogen Dipstick 0.2 mg/dL (0.2 mg/dL) Urine Leukocyte Esterase Negative (NEG) Urine RBC 0 /HPF (0-2) Urine WBC 0 /HPF (0-4) Urine Bacteria 0 /HPF (0-FEW) Urine Mucus Slight /LPF EKG EKG [] Radiology/Procedures Radiology/Procedures [] Course & Med Decision Making Course & Med Decision Making Pertinent Labs and Imaging studies reviewed. (See chart for details) [Patient with benign exam with good urine output. the scan performed with less than 70 mL of residual urine present bladder. UA unremarkable. Recommend following up with PCP early next week.] Dragon Disclaimer Dragon Disclaimer This electronic medical record was generated, in whole or in part, using a voice recognition dictation system. Departure Departure Impression: Primary Impression: Urinary frequency Disposition: 01 HOME, SELF-CARE Condition: GOOD Patient Instructions: Urinary Frequency Additional Instructions: Please increase daily fluid intake and follow-up with your PCP early next week for reevaluation. Return to the ED if new or worsening symptoms. SILVESTRE METCALF DO Apr 22, 2018 16:20
[2018-04-22 16:30] VITALS: BP 138/76
== END 2018-04-22 17:00 | disposition home or self-care (01) ==
LOC: ER 13:10
DX: R35.0 Frequency of micturition (principal); K21.9 Gastro-esophageal reflux disease without esophagitis; E78.00 Pure hypercholesterolemia, unspecified; E11.9 Type 2 diabetes mellitus without complications; I10 Essential (primary) hypertension; Z85.038 Personal history of other malignant neoplasm of large intestine; Z85.118 Personal history of other malignant neoplasm of bronchus and lung
CPT/HCPCS: 81001; 99283; 99285

== ENCOUNTER 2018-05-02 17:42 | Emergency (ER) | payer MEDICARE ==
[~2018-05-02] VITALS: Ht 180.3 cm; Wt 79.4 kg
--- NOTE | 2018-05-02 18:13 | PHYS DOC ---
Past Medical History Past Medical History: Cancer, Diabetes-Type II, GERD, High Cholesterol, Hypertension, Other Additional Past Medical Histor: Colon CA(Part of intestines removed) Lung cancer 2011 in remission Past Surgical History: Other Additional Past Surgical Histo: hemorrhoids,"all but 4in of colon removed." right alisha cath Alcohol Use: Sober Drug Use: None Adult General Chief Complaint Chief Complaint: URINARY RETENTION HPI HPI Patient is an 87-year-old male who presents with complaint of urinary retention. Patient states that about 3:00 this morning he noticed that he was having a difficult time urinating. He states that all he has been able to get out since that time as just a few drops. He rates pain as being moderate. He denies having had any urinary discomfort. He states that he was recently seen here for the same complaint and was told that he was not drinking enough fluids. He denies any fever or back pain. He states that he has been scheduled for a follow-up appointment with his primary care doctor for this complaint. Review of Systems Review of Systems Constitutional: Denies fever or chills [] Respiratory: Denies cough or shortness of breath [] Cardiovascular: Denies chest pain [] GI: Complains of lower abdominal/suprapubic pain/pressure[] : Denies dysuria or hematuria. Complains of urinary retention [] Musculoskeletal: Denies back pain or joint pain [] All other systems were reviewed and found to be within normal limits, except as documented in this note. Allergies Allergies Allergies Coded Allergies Type Severity Reaction Last Updated Verified No Known Drug Allergies 04/01/17 No Physical Exam Physical Exam Constitutional: Well developed, well nourished, no acute distress, non-toxic appearance. [] HENT: Normocephalic, atraumatic, bilateral external ears normal, oropharynx moist, no oral exudates, nose normal. [] Eyes: PERRLA, EOMI, conjunctiva normal, no discharge. [] Neck: Normal range of motion, no tenderness, supple, no stridor. [] Cardiovascular:Heart rate regular rhythm, no murmur [] Lungs & Thorax: Bilateral breath sounds clear to auscultation [] Abdomen: Bowel sounds normal, soft, no tenderness, no masses, no pulsatile masses. [] Skin: Warm, dry, no erythema, no rash. [] Extremities: No tenderness, no cyanosis, no clubbing, ROM intact, no edema. [] Neurologic: Alert and oriented. [] Current Patient Data Vital Signs Vital Signs Date Time Temp Pulse Resp B/P (MAP) Pulse Ox O2 Delivery O2 Flow Rate FiO2 05/02/18 17:50 97.8 109 20 175/92 (119) 97 Room Air 97.8 Lab Values Laboratory Tests Test 05/02/18 18:06 05/02/18 18:22 Urine Collection Type U cath Urine Color Straw Urine Clarity Clear Urine pH 7.0 Urine Specific [place] <=1.005 Urine Protein Negative mg/dL (NEG-TRACE) Urine Glucose (UA) Negative mg/dL (NEG) Urine Ketones (Stick) Negative mg/dL (NEG) Urine Blood Negative (NEG) Urine Nitrite Negative (NEG) Urine Bilirubin Negative (NEG) Urine Urobilinogen Dipstick 0.2 mg/dL (0.2 mg/dL) Urine Leukocyte Esterase Negative (NEG) Urine RBC Rare /HPF (0-2) Urine WBC 0 /HPF (0-4) Urine Squamous Epithelial Cells Occ /LPF Urine Bacteria 0 /HPF (0-FEW) White Blood Count 3.7 x10^3/uL (4.0-11.0) L Red Blood Count 3.95 x10^6/uL (4.30-5.70) L Hemoglobin 11.7 g/dL (13.0-17.5) L Hematocrit 34.5 % (39.0-53.0) L Mean Corpuscular Volume 87 fL (79-100) Mean Corpuscular Hemoglobin 30 pg (25-35) Mean Corpuscular Hemoglobin Concent 34 g/dL (31-37) Red Cell Distribution Width 16.2 % (11.5-14.5) H Platelet Count 164 x10^3/uL (140-400) Neutrophils (%) (Auto) 70 % (31-73) Lymphocytes (%) (Auto) 17 % (24-48) L Monocytes (%) (Auto) 8 % (0-9) Eosinophils (%) (Auto) 4 % (0-3) H Basophils (%) (Auto) 2 % (0-3) Neutrophils # (Auto) 2.6 x10^3uL (1.8-7.7) Lymphocytes # (Auto) 0.6 x10^3/uL (1.0-4.8) L Monocytes # (Auto) 0.3 x10^3/uL (0.0-1.1) Eosinophils # (Auto) 0.1 x10^3/uL (0.0-0.7) Basophils # (Auto) 0.1 x10^3/uL (0.0-0.2) Sodium Level 134 mmol/L (136-145) L Potassium Level 3.9 mmol/L (3.5-5.1) Chloride Level 99 mmol/L (98-107) Carbon Dioxide Level 26 mmol/L (21-32) Anion Gap 9 (6-14) Blood Urea Nitrogen 13 mg/dL (8-26) Creatinine 1.1 mg/dL (0.7-1.3) Estimated GFR (Cockcroft-Gault) 76.3 BUN/Creatinine Ratio 12 (6-20) Glucose Level 94 mg/dL (70-99) Calcium Level 9.5 mg/dL (8.5-10.1) Total Bilirubin 0.6 mg/dL (0.2-1.0) Aspartate Amino Transferase (AST) 13 U/L (15-37) L Alanine Aminotransferase (ALT) 12 U/L (16-63) L Alkaline Phosphatase 69 U/L (46-116) Total Protein 7.1 g/dL (6.4-8.2) Albumin 3.6 g/dL (3.4-5.0) Albumin/Globulin Ratio 1.0 (1.0-1.7) Laboratory Tests 05/02/18 18:22 Laboratory Tests 05/02/18 18:22 EKG EKG [] Radiology/Procedures Radiology/Procedures [] Course & Med Decision Making Course & Med Decision Making Pertinent Labs and Imaging studies reviewed. (See chart for details) A full catheter was placed by ER nurse and patient has had a total of 1500 mL's of urine output. Patient is asymptomatic. I discussed with patient leaving the catheter in and discharging with a leg bag versus discharging home with prescription for Flomax. Patient prefers the prescription and follow-up with his provider. Silva catheter removed by ER nurse. Dragon Disclaimer Dragon Disclaimer This electronic medical record was generated, in whole or in part, using a voice recognition dictation system. Departure Departure Impression: Primary Impression: Urinary retention Disposition: 01 HOME, SELF-CARE Condition: STABLE Referrals: ANSON HAYDEN MD (PCP) Patient Instructions: Urinary Retention, Acute, Male Scripts Tamsulosin Hcl (FLOMAX) 0.4 Mg Cap.er.24h 0.4 MG PO DAILY, #30 TAB Prov: LAURA BLAKELY Jr., DO 05/02/18 LAURA BLAKELY Jr., DO May 02, 2018 18:12
[2018-05-02 18:24] LABS: BILIRUBIN,URINE NEGATIVE (NEG); CLARITY,URINE CLEAR; NITRITE,URINE NEGATIVE (NEG); PROTEIN,URINE NEGATIVE (NEG-TRACE); UROBILINOGEN,URINE 0.2 mg/dL (0.2 mg/dL)
[2018-05-02 18:29] LABS: BASO # 0.1 x10^3/uL (0.0-0.2); BASO % 2 % (0-3); EOS # 0.1 x10^3/uL (0.0-0.7); EOS % 4 % (0-3); HEMATOCRIT 34.5 % (39.0-53.0); HEMOGLOBIN 11.7 g/dL (13.0-17.5); LYMPH # 0.6 x10^3/uL (1.0-4.8); LYMPH % 17 % (24-48); MEAN CORPUSCULAR HEMOGLOBIN 30 pg (25-35); MEAN CORPUSCULAR HGB CONC 34 g/dL (31-37); MEAN CORPUSCULAR VOLUME 87 fL (79-100); MONO # 0.3 x10^3/uL (0.0-1.1); MONO % 8 % (0-9); NEUT # 2.6 x10^3uL (1.8-7.7); NEUT % 70 % (31-73); PLATELET COUNT 164 x10^3/uL (140-400); RED BLOOD COUNT 3.95 x10^6/uL (4.30-5.70); RED CELL DISTRIBUTION WIDTH 16.2 % (11.5-14.5); WHITE BLOOD COUNT 3.7 x10^3/uL (4.0-11.0)
[2018-05-02 18:30] LABS: COLOR,URINE STRAW
[2018-05-02 18:32] LABS: BACTERIA,URINE 0 /HPF (0-FEW); RBC,URINE RARE /HPF (0-2); SQUAMOUS EPITHELIAL CELL,UR OCC /LPF; WBC,URINE 0 /HPF (0-4)
[2018-05-02 18:39] LABS: CALCIUM 9.5 mg/dL (8.5-10.1); CREATININE 1.1 mg/dL (0.7-1.3); GFR 76.3; POTASSIUM 3.9 mmol/L (3.5-5.1)
[2018-05-02 18:47] LABS: ALBUMIN 3.6 g/dL (3.4-5.0); TOTAL BILIRUBIN 0.6 mg/dL (0.2-1.0); TOTAL PROTEIN 7.1 g/dL (6.4-8.2)
[2018-05-02] MEDS ORDERED: TAMS0.4C97 PO (19:28)
[2018-05-02 19:30] VITALS: BP 165/81
== END 2018-05-02 19:35 | disposition home or self-care (01) ==
LOC: ER 17:42
DX: R33.9 Retention of urine, unspecified (principal); E11.9 Type 2 diabetes mellitus without complications; K21.9 Gastro-esophageal reflux disease without esophagitis; E78.00 Pure hypercholesterolemia, unspecified; I10 Essential (primary) hypertension; Z85.038 Personal history of other malignant neoplasm of large intestine
CPT/HCPCS: 36415; 80053; 81001; 85025; 99284

== ENCOUNTER → 2018-06-07 | Outpatient (CLI) | payer MEDICARE ==
[~2018-06-07] MED LIST changes: +0.9 % SOD CHL for STERILE FIELD 10 ML DISP.SYRIN. IV ONE; +CONTRAST GIVEN. MC PRN; +HEPARIN PF 500 UNIT/5 ML DISP.SYRIN. IV ONE; +IOHEXOL 300 MG/ML 100ML VIAL. IV ONE; +TAMS0.4C97 PO
--- NOTE | 2018-06-07 09:55 | RAD ---
CT of the chest with contrast 06/07/2018 INDICATION: Right lower lobe mass COMPARISON STUDY: CT of the chest with contrast February 04, 2018 TECHNIQUE: Multidetector CT imaging of the chest was performed following the administration of IV contrast. FINDINGS: There is a right internal jugular port with tip at the cavoatrial junction. Heart size remains normal. No significant pericardial effusion is identified. Coronary calcification is noted. Redemonstration of the right upper lobe masslike consolidation with associated volume loss is again seen. There are central areas of hypoattenuation surrounded by enhancing foci. Largest central area of hypoattenuation is has mildly decreased in size in the interim. There is a subtle area of hypoattenuation more anterior likely which is slightly more prominent than on comparison study. The spiculated mass in the right lower lobe lobe which abuts the inferior aspect of the other process appears slightly increased in the interim since comparison study exact measurement is difficult given irregular contour.Tracheal dilatation and bronchiectasis is similar to comparison study. Similar-appearing small right pleural effusion is noted. Scattered mildly enlarged mediastinal lymph nodes are similar, most prominently in the subcarinal region. No pneumothorax is seen. Emphysematous changes are similar. Limited visualization of the upper abdomen is unremarkable. No acute osseous abnormalities are seen. IMPRESSION: 1. Mild increased size of the spiculated mass in the right lower lobe in the interim since prior study. Findings concerning for malignancy. 2. Persistent area of masslike consolidation in the right upper lobe with central areas of masslike hypoattenuation. There is a hypoattenuation have decreased in the interim since comparison exam. 3. Persistent small right pleural effusion. 4. Unchanged mediastinal lymph nodes CT DOSING PQRS STATEMENT: One or more of the following individualized dose reduction techniques were utilized for this examination: 1. Automated exposure control 2. Adjustment of the mA and/or kV according to patient size 3. Use of iterative reconstruction technique Electronically signed by: Yang Leyva MD (06/07/2018 9:51 AM) [facility]
== END | disposition home or self-care (01) ==
LOC: CT 08:40
PROVIDERS: ATTEND Internal Medicine Hematology & Oncology
DX: J90 Pleural effusion, not elsewhere classified (principal); R59.0 Localized enlarged lymph nodes
CPT/HCPCS: 71260; Q9967